=== PATIENT | male | born 1950 | race Two or more races ===

== ENCOUNTER 2021-10-29 07:07 | Outpatient (CLI) | payer OTHER | END 2021-10-29 07:12 | disposition home or self-care (01) | LOC: RX STUDY 07:07 | PROVIDERS: ATTEND Internal Medicine Gastroenterology | DX: K44.9 Diaphragmatic hernia without obstruction or gangrene (principal); R10.13 Epigastric pain; K21.9 Gastro-esophageal reflux disease without esophagitis; R19.5 Other fecal abnormalities ==